=== PATIENT | male | born 1995 | race Two or more races ===

== ENCOUNTER 2019-12-04 05:11 | Day surgery (SDC) | payer OTHER ==
[~2019-12-04] VITALS: Ht 185.4 cm; Wt 145.1 kg
[2019-12-04] VITALS (11 sets, daily range): BP systolic 97–155; BP diastolic 58–90
[2019-12-04] MEDS ORDERED: Lidocaine 1% Plain 30 ml INJ ONE ×3 (06:29→08:58)
[2019-12-04] MEDS ORDERED: Gelfoam Size TOPIC ONE (06:29)
[2019-12-04] MEDS ORDERED: Thrombin 5000 units TOPIC ONE (06:29)
[2019-12-04] MEDS ORDERED: Bacitracin 50000 Units Vial ONE (06:29)
[2019-12-04] MEDS ORDERED: Chloraseptic Spray 20mL Bottle ORAL PRN (06:30)
[2019-12-04] MEDS ORDERED: HYDROcodone/Acetamin 10/325 tab ORAL PRN ×2 (06:30)
[2019-12-04] MEDS ORDERED: Hydromorphone 0.5mg/0.5ml inj IVP PRN ×2 (06:30→06:45)
[2019-12-04] MEDS ORDERED: LR 1000ml 1,000 ML IVLG SCH (06:39)
--- NOTE | 2019-12-04 06:41 | Anethesia Preoperative Eval ---
Anesthesia Pre-op PMH/ROS General Date of Evaluation: Dec 04, 2019 Time of Evaluation: 07:01 Anesthesiologist: Hannah ASA Score: ASA 2 Mallampati Score Class I : Soft palate, uvula, fauces, pillars visible Class II: Soft palate, uvula, fauces visible Class III: Soft palate, base of uvula visible Class IV: Only hard plate visible Mallampati Classification: Class II Surgeon: Nanci Diagnosis: Neck Pain Surgical Procedure: ACDF C4-5 Anesthesia History: none Family History: no anesthesia problems Allergies: Coded Allergies: No Known Allergies (Unverified , 11/28/19) Medications: see eMAR Patient NPO?: Yes Past Medical History Cardiovascular: Reports: HTN Other: obesity - Morbid BMI 43 Anesthesia Pre-op Phys. Exam Physician Exam Last Vital Signs Date Time Temp Pulse Resp B/P (MAP) Pulse Ox O2 Delivery O2 Flow Rate FiO2 12/04/19 05:59 96.9 70 18 155/83 (107) 98 12/04/19 05:48 Room Air Constitutional: NAD Neurologic: CN 2-12 intact Cardiovascular: RRR Respiratory: CTA Gastrointestinal: S/NT/ND Airway Exam Mallampati Score: Class II MO: full ROM: limited Teeth: intact Anesthesia Pre-op A/P Risk Assessment & Plan Assessment: ASA 2 Plan: GA, SED, GlideScope Status Change Before Surgery: No Pre-Antibiotics Dru Grams Ancef IV Given Within 1 Hr of Incision: Yes Time Given: 07:31 Arthur Young MD Dec 04, 2019 06:41
[2019-12-04] MEDS ORDERED: Lidocaine 1% MPF 10mg/ml 5ml ONE (06:44)
[2019-12-04] MEDS ORDERED: Sodium Chloride 10ml vial INJ ONE (06:44)
[2019-12-04] MEDS ORDERED: Acetaminophen (Non formulary) 100 ML IV ONE (06:45)
[2019-12-04] MEDS ORDERED: HYDROcodone/Acetamin 7.5/325 tab ORAL PRN (06:45)
[2019-12-04] MEDS ORDERED: Meperidine 25mg/0.5ml Inj (FOR RIGORS ONLY) IV PRN (06:45)
[2019-12-04] MEDS ORDERED: fentaNYL 100 mcg/2 mL IV PRN (06:45)
[2019-12-04] MEDS ORDERED: Atropine Sulfate 0.4mg/ml inj IVP PRN (06:45)
[2019-12-04] MEDS ORDERED: oxyCODONE HCL/Acetaminophen 5/325mg ORAL PRN (06:45)
[2019-12-04] MEDS ORDERED: Midazolam 2mg/2ml Inj IVP PRN (06:45)
[2019-12-04] MEDS ORDERED: HYDROcodone/Acetamin 5/325 tab ORAL PRN (06:45)
[2019-12-04] MEDS ORDERED: LORazepam Inj 2mg/ml 1ml IV PRN (06:45)
[2019-12-04] MEDS ORDERED: fentaNYL 100 mcg/2 mL IV ONE (06:45)
[2019-12-04] MEDS ORDERED: Ketorolac 30mg Inj IV PRN ×2 (06:45)
[2019-12-04] MEDS ORDERED: DiphenhydrAMINE 50mg/ml Inj IVP PRN (06:45)
[2019-12-04] MEDS ORDERED: Neostigmine 1mg/ml 10ml Inj ONE (07:00)
[2019-12-04] MEDS ORDERED: LR 1000ml ONE (07:00)
[2019-12-04] MEDS ORDERED: ceFAZolin sod 1 GM in NS 55 ML IVPB ONE (07:00)
[2019-12-04] MEDS ORDERED: Sterile Water Irrig 1000ml IRRIG ONE (07:00)
[2019-12-04] MEDS ORDERED: propofoL 1,000mg/100ml IV ONE (07:00)
[2019-12-04] MEDS ORDERED: NS Irrig 1000ml ONE (07:00)
--- NOTE | 2019-12-04 07:11 | Pre-Procedure Note/Attestation ---
Pre-Procedure Note/Attestation Complete Prior to Procedure Planned Procedure: not applicable Procedure Narrative: C4-C5 ACDF Plate Indications for Procedure Pre-Operative Diagnosis: pain Attestation I attest that I discussed the nature of the procedure; its benefits; risks and complications; and alternatives (and the risks and benefits of such alternatives ), prior to the procedure, with the patient (or the patient's legal printing supplies sales representative). I attest that, if there was a reasonable possibility of needing a blood transfusion, the patient (or the patient's legal printing supplies sales representative) was given the [facility] standardized written summary, pursuant to the Shawn Kassandra Blood Safety Act ([place] Health and Safety Code # 1645, as amended). I attest that I re-evaluated the patient just prior to the surgery and that there has been no change in the patient's H&P, except as documented below: Sky Christine MD Dec 04, 2019 07:11
--- NOTE | 2019-12-04 07:20 | Immediate Post-Op Evaluation ---
Immediate Post-Op Evalulation Immediate Post-Op Evalulation Procedure: ACDF C4-5 Date of Evaluation: Dec 04, 2019 Time of Evaluation: 10:17 IV Fluids: 1000 LR Blood Products: 0 Estimated Blood Loss: 40 Urinary Output: 0 Blood Pressure Systolic: 97 Blood Pressure Diastolic: 58 Pulse Rate: 64 Respiratory Rate: 16 O2 Sat by Pulse Oximetry: 98 Temperature (Fahrenheit): 98.4 Pain Score (1-10): 2 Nausea: No Vomiting: No Complications 0 Patient Status: awake, reacts, patent, extubated, none Hydration Status: adequate Dru Grams Ancef IV Given Within 1 Hr of Incision: Yes Time Given: 07:31 Arthur Young MD Dec 04, 2019 07:20
[2019-12-04] MEDS ORDERED: Glycopyrrolate 0.2mg/ml 1ml Vial ONE (09:10)
[2019-12-04] MEDS ORDERED: D5 1/2NS 1,000 ML IV SCH (09:36)
--- NOTE | 2019-12-04 09:36 | Brief Operative Note ---
Immediate Post Operative Note Operative Note Pre-op Diagnosis: pain Procedure: ACDF C4-C5 Plate Interbody devoce Osteopromotive SSEP Xray Scope Body Habitus Post-op Diagnosis: same as pre-op Findings: consistent w/pre-op dx studies Surgeon: Nanci BONE Quill Reamer: Naren PRESSLEY Anesthesiologist: Hannah BONE Anesthesia: general Specimen: yes Complications: none Condition: stable Fluids: anesthesia Estimated Blood Loss: minimal Drains: none Implant(s) used?: Yes Sky Christine MD Dec 04, 2019 09:36
[2019-12-04] MEDS ORDERED: Naloxone 0.4mg/ml Inj IVP PRN (09:45)
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
--- NOTE | 2019-12-04 12:03 | NUR ---
NURSE NOTES: Patient arrived on unit via hospital bed. Stable. Breathing is even and unlabored on 3L oxygen via nc. Patient oriented to room, call light, and unit. Patient instructed to use call light for assistance, verbalized understanding. Surgical dressing c/d/i. Ice pack in place. CSM intact. SCD on iza lower extremities. Patient is in bed in locked and lowest position with call light within reach. All safety measures provided. Will continue to monitor.
[2019-12-04] MEDS ORDERED: Chloraseptic Spray 20mL Bottle ORAL ONE (13:00)
--- NOTE | 2019-12-04 13:00 | NUR ---
NURSE NOTES: Patient voided and ambulated to restroom with staff.
--- NOTE | 2019-12-04 14:30 | NUR ---
NURSE NOTES: Patient walked with physical therapy around unit.
--- NOTE | 2019-12-04 14:30 | NUR ---
PT EVALUATION NOTE Patient seen for initial evaluation and treatment initiated. Patient presents with decreased knowledge of cervical precautions and impaired functional mobility s/p cervical surgery. Patient instructed in cervical precautions and log roll technique for in/OOB. Patient required SBA for bed mobility and supervision for transfers. Patient able to ambulate 150 ft with supervision no AD and to go up/down 4 stairs with supervision holding one rail. Patient slightly unsteady during ambulation however no loss of balance. Patient will benefit from skilled inpatient PT intervention to address balance and compliance with cervical precautions ith improved level of functional mobility including stair training. Anticipate discharge home once medically cleared by MD. No DME needs identified at this time. Addendum: 12/04/19 at 1512 by KELLI YORK PT Amended: Links added.
--- NOTE | 2019-12-04 15:02 | Diagnostic Imaging Report ---
INDICATION: Pain, intraoperative TECHNIQUE: Intraoperative imaging Fluoroscopy time: 10.8 seconds Total dose: 0.0244 mGym2 Total number of images: 4 COMPARISON: None FINDINGS: Initial image demonstrates surgical tool projected at the level of the C4-5 disc. Subsequent images document placement of anterior fusion hardware at C4-5. This appears well aligned IMPRESSION: Intraoperative imaging, as described
[2019-12-04] MEDS ORDERED: ceFAZolin sod 1 GM in D5W 55 ML IV SCH (15:30)
--- NOTE | 2019-12-04 17:31 | NUR ---
NURSE NOTES: Patient discharged home as ordered. Stable. Denies pain or SOB. Patient is AAOx4, father is at bedside. Patient was given thorough discharge instructions by RN, patient verbalized understanding. Patient has all belongings. [place] filled by father from [facility] pharmacy. Patient was given thorough medication instructions by RN, patient verbalized understanding. Surgical dressing c/d/i. No IV access. Skin is c/d/i. Patient assisted outside by staff without incident.
--- NOTE | 2019-12-04 18:29 | Operative Note - Dictated ---
DATE OF OPERATION: 12/04/2019 SURGEON: Sky Christine, PhD, MD. OBSTETRICAL TECH: POOJA Harrison. ANESTHESIA: Arthur Young MD. General with intubation. ADMITTING/PREOPERATIVE DIAGNOSIS: Posttraumatic discogenic neck pain . POSTOPERATIVE DIAGNOSIS: Posttraumatic discogenic neck pain . OPERATIVE PROCEDURE: 1. C4-C5 anterior cervical diskectomy with placement of osteopromotive material with a titanium interbody device with correction of deformity. 2. Anterior internal plate fixation-not integral into the interbody device-bilateral C4 bilateral C5. 3. SSEP monitoring. 4. High-powered microscopic dissection. 5. Intraoperative fluoroscopy interpreted by surgeon. 6. Patient's body habitus greater than 95th percentile for highly increasing complexity of surgery. ESTIMATED BLOOD LOSS: Minimal. COMPLICATIONS: None. POSTOP CONDITION: Good/stable. SPECIMEN: Disc fragments to pathology. DESCRIPTION OF PROCEDURE: The patient was brought to the operating room and in the supine position, general anesthesia with intubation was induced. After appropriate positioning, a spinal needle was taped on the right lateral aspect of the patient's neck without penetration into the skin at any time. A cross-table image was obtained demonstrating the correct level for incision placement. The appropriate interval was marked on the left side of the neck with a sterile marking pen placing an incision within the skin fold. The marker on the right side of the neck was removed. Anterior cervical spine was sterilely prepped and draped free in usual sterile fashion. Utilizing the prior positional marking, a sharp incision was placed left lateral to dermis and epidermis. Electrocautery dissection was carried through extensive subcutaneous tissue to the level of the platysmas muscle. It was identified, isolated, and transected in line with the incision. Under magnification, dissection was carried medial to the left sternocleidomastoid muscle and carotid sheath through the deep cervical and pretracheal fascia extended midline between the right and left longus colli muscles. The disc space was marked with insertion of a needle that was bent at 90 degree angle so as to avoid penetration greater than 3 mm. All under sterile conditions. Cross-table imaging was obtained under sterile conditions, interpreted by surgeon as correct for C4-C5. Level was marked. Needle removed. Retractors placed deep to the longus colli muscles. They were subperiosteally elevated from medial to lateral not exceeding 3 mm. The imaging was obtained confirming level with markers in place. Annulotomy with diskectomy was performed to the posterior longitudinal ligament. With Midas Jamie bur dissection under high-power magnification, endplates were denuded and parallelized to the appropriate positions in the C4 superior C5. SSEP monitoring remained stable at all times. Interpositional trial graft was utilized titanium. Of note, it is that the trial graft contained a stop position on the handle that was non adjustable tp avoid penetration greater than the appropriate depth and not countersunk. Appropriate graft with lordosis was determined. The appropriate sterile graft was obtained, packed with osteopromotive material level in combination with local autograft. The graft was tamped into position. Fit excellent. Cross-table image obtained demonstrating correct alignment and depth. SSEP monitoring stable. Ten pounds of traction on the neck was removed. Distraction pins were removed and the bleeding bone cauterized with application of wax. The wound was irrigated with antibiotic-containing saline. The appropriate dimension anterior cervical plate was internally fixed with bilateral screws into the C4 and C5 vertebral bodies in a divergent fashion resulting in compression. Cross-table imaging was obtained and stored demonstrating appropriate alignment and level. Interval was copiously irrigated with antibiotic-containing saline. Exploration did not reveal any obvious excoriation or laceration of vital structures. Sequential reapproximation was undertaken on the platysmas muscle, subcutaneous tissue, dermis, and epidermis. Surgical strips were applied transverse to the cervical incision following the application of a sterile bandage that was maintained in place with tape. Patient was awakened and extubated in the operating room, and transported to postop recovery in good stable condition. Sky Christine M.D. DR: JENNY JOB#: [id number] CC:
[2019-12-05 11:17] VITALS: BP 122/68
--- NOTE | 2019-12-05 11:17 | 48 Hour Post Anesthesia Eval ---
Post Anesthesia Evaluation Procedure: ACDF C4-5 Date of Evaluation: Dec 05, 2019 Time of Evaluation: 11:16 Blood Pressure Systolic: 122 0: 68 Pulse Rate: 68 Respiratory Rate: 20 Temperature (Fahrenheit): 97.6 O2 Sat by Pulse Oximetry: 98 Airway: patent Nausea: No Vomiting: No Pain Intensity: 2 Hydration Status: adequate Cardiopulmonary Status: stable Mental Status/LOC: patient returned to baseline Follow-up Care/Observations: n/a Post-Anesthesia Complications: none Follow-up care needed: ready to discharge Maxim Marshall MD Dec 05, 2019 11:17
== END 2019-12-04 17:30 | disposition home or self-care (01) ==
LOC: SUR 05:11 → 3E 11:50 → SUR 17:30
DX: M54.2 Cervicalgia (principal); I10 Essential (primary) hypertension; E66.01 Morbid (severe) obesity due to excess calories; M50.222 Other cervical disc displacement at C5-C6 level; Z68.41 Body mass index [BMI] 40.0-44.9, adult
CPT/HCPCS: 20930; 20936; 22554; 36415; 72040; 76000; 86850; 86900; 86901; 87081; 94003; 97110; 97112; 97161; 97530; C1713; J0131; J0690; J1100; J1200; J1885; J2001; J2250; J2405; J2704; J2710; J3010; J7120; 94150; J2180